=== PATIENT | male | born 1950 | race Caucasian/White ===

== ENCOUNTER 2022-01-17 09:11 | Emergency (ER) | payer MEDICARE, BC ==
[2022-01-17] VITALS (8 sets, daily range): BP systolic 111–154; BP diastolic 76–99
[~2022-01-17] VITALS: Ht 188 cm; Wt 72.7 kg
[2022-01-17 09:29] LABS: HEMATOCRIT 47.6 % (39.0-50.0); HEMOGLOBIN 15.3 g/dl (14.0-18.0); IMMATURE GRANULOCYTES 0.4 % (0.0-5.0); MEAN CELL VOLUME 96.9 fL CALC (80.0-100.0); MEAN CORPUSCULAR HGB 31.2 pG CALC (26.0-32.0); MEAN CORPUSCULAR HGB CONC 32.1 g/dL CAL (32.0-36.0); NEUT# 10.71 thou/uL (1.82-7.42); RED BLOOD COUNT 4.91 mill/uL (4.70-6.10); RED CELL DISTRI WIDTH 12.4 % (11.5-15.5)
[2022-01-17] MEDS ORDERED: ASPIRIN81 MG PO (09:35)
[2022-01-17 09:46] LABS: ALBUMIN 3.8 g/dL (3.2-5.0); BILIRUBIN, TOTAL 1.1 mg/dL (0.0-1.4); CREATININE 1.5 mg/dL (0.7-1.3); POTASSIUM 3.7 mmol/l (3.5-5.1); TOTAL PROTEIN 7.2 g/dL (6.3-8.2)
== END 2022-01-17 13:06 | disposition short-term general hospital (02) ==
LOC: ED 09:11 → ED-I 09:40 → ED 13:06
PROVIDERS: Family Medicine
DX: I21.4 Non-ST elevation (NSTEMI) myocardial infarction (principal); I47.1 Supraventricular tachycardia; Z20.822 Contact with and (suspected) exposure to COVID-19
CPT/HCPCS: J1650

== ENCOUNTER 2023-02-02 06:45 | Day surgery (SDC) | payer MEDICARE, BC ==
[~2023-02-02] VITALS: Ht 188 cm; Wt 76.2 kg
[~2023-02-02 06:45] MED LIST: ASPIRIN81 MG PO; ATORVASTATIN CA40 MG PO; EYLEA OU; TOPROL XL25 M1 PO
[2023-02-02 08:35] VITALS: BP 146/79
== END 2023-02-02 09:00 | disposition home or self-care (01) ==
LOC: ORM 06:45
PROVIDERS: ATTEND Internal Medicine Gastroenterology
PROC: 0DBK8ZX Excision of Ascending Colon, Via Natural or Artificial Opening Endoscopic, Diagnostic (ICD-10-PCS; principal; 2023-02-02)
PROC: 0DBP8ZX Excision of Rectum, Via Natural or Artificial Opening Endoscopic, Diagnostic (ICD-10-PCS; 2023-02-02)
DX: C20 Malignant neoplasm of rectum (principal); K62.5 Hemorrhage of anus and rectum; D64.9 Anemia, unspecified; D12.2 Benign neoplasm of ascending colon

== ENCOUNTER 2023-02-16 07:39 | Day surgery (SDC) | payer MEDICARE, BC ==
[~2023-02-16] VITALS: Ht 188 cm; Wt 76.2 kg
[2023-02-16 10:34] VITALS: BP 150/71
== END 2023-02-16 10:30 | disposition home or self-care (01) ==
LOC: ENDO 07:39
PROVIDERS: ATTEND Internal Medicine Gastroenterology
PROC: 0DBP8ZX Excision of Rectum, Via Natural or Artificial Opening Endoscopic, Diagnostic (ICD-10-PCS; principal; 2023-02-16)
DX: D12.8 Benign neoplasm of rectum (principal)

== ENCOUNTER 2024-05-16 06:48 | Day surgery (SDC) | payer MEDICARE, BC ==
[~2024-05-16] VITALS: Ht 188 cm; Wt 76.7 kg
[~2024-05-16 06:48] MED LIST changes: +BAYER ASPIRIN E81 MG PO; +TIADYLT ER180 MG PO
[2024-05-16] MEDS ORDERED: FAMOTIDINE 10MG/ML 2ML SDV IV ONE (06:53)
[2024-05-16] MEDS ORDERED: LACTATED RINGER'S 1,000 ML IV ONE (06:54)
[2024-05-16 08:55] VITALS: BP 143/84
[2024-05-16] MEDS ORDERED: PROPOFOL 200 MG/20 ML VIAL IV ONE (11:27)
[2024-05-16] MEDS ORDERED: GLYCOPYRROLATE 0.2 MG/ML IV ONE (11:27)
[2024-05-16] MEDS ORDERED: LIDOCAINE HCL 2% 2ML SDV IV ONE (11:27)
== END 2024-05-16 09:15 | disposition home or self-care (01) ==
LOC: ENDO 06:48 → ORM 08:00 → ENDO 09:15 → ORM 10:30
PROVIDERS: ATTEND Surgery
PROC: 0DBK8ZX Excision of Ascending Colon, Via Natural or Artificial Opening Endoscopic, Diagnostic (ICD-10-PCS; principal; 2024-05-16)
PROC: 0DBP8ZX Excision of Rectum, Via Natural or Artificial Opening Endoscopic, Diagnostic (ICD-10-PCS; 2024-05-16)
PROC: 0DBH8ZX Excision of Cecum, Via Natural or Artificial Opening Endoscopic, Diagnostic (ICD-10-PCS; 2024-05-16)
DX: Z12.11 Encounter for screening for malignant neoplasm of colon (principal); D12.0 Benign neoplasm of cecum; D12.2 Benign neoplasm of ascending colon; D12.8 Benign neoplasm of rectum; I10 Essential (primary) hypertension; Z86.0101 Personal history of adenomatous and serrated colon polyps
CPT/HCPCS: J1596